=== PATIENT | male | born 1980 | race African-American/Black ===

== ENCOUNTER → 2016-09-27 | Outpatient (CLI) | payer BC | LOC: MW.CHFP 09:04 | PROVIDERS: ATTEND Student in an Organized Health Care Education/Training Program | DX: Z72.51 High risk heterosexual behavior (principal) | CPT/HCPCS: 36415; 87389; 87491; 87591 ==

== ENCOUNTER 2024-11-09 07:09 | Day surgery (SDC) | payer BC ==
[2024-11-09] MEDS: Lactated Ringers 1,000 ML IV SCH (07:35)
[2024-11-09] MEDS ORDERED: Ketamine HCL/NACL, ISO-OSM 50 MG/5 ML Syringe ONE (07:54)
[2024-11-09] MEDS ORDERED: dexmedeTOMIDine HCl 200 MCG/2 ML SDV ONE (07:55)
[2024-11-09] MEDS ORDERED: Sodium Chloride 0.9% 20 ML ONE (07:55)
[2024-11-09] MEDS ORDERED: propofoL 500 MG/50 ML 50 ML ONE ×2 (07:58→08:40)
[2024-11-09] MEDS ORDERED: Lidocaine 2% 5 ML SDV ONE (07:58)
[2024-11-09] MEDS ORDERED: Phenylephrine HCl In 0.9% NaCl 1 MG/10 ML Syringe ONE (08:43)
[2024-11-09] MEDS ORDERED: Ondansetron 4 MG/2 ML SDV ONE (08:49)
[2024-11-09] MEDS ORDERED: Dexamethasone 4 MG/ML 5 ML MDV ONE (08:52)
[2024-11-09] MEDS ORDERED: ePHEDrine 50 MG/ML SDV ONE (09:11)
[2024-11-09] MEDS ORDERED: Lactated Ringers 1,000 ML IV SCH (09:15)
[2024-11-09 10:07] VITALS: BP 129/65; PULSE 61
== END 2024-11-09 10:15 | disposition home or self-care (01) ==
LOC: MW.SDS 07:09
PROVIDERS: ATTEND Surgery
DX: K29.50 Unspecified chronic gastritis without bleeding (principal); K21.9 Gastro-esophageal reflux disease without esophagitis; R19.4 Change in bowel habit
CPT/HCPCS: 43239; 45378; J1100; J2003; J2371; J2405; J2704; J7120; 00813; J3490